=== PATIENT | female | born 1990 | race Caucasian/White ===

== ENCOUNTER 2020-07-05 00:43 | Emergency (ER) | payer MEDICAID ==
[~2020-07-05] VITALS: Ht 165.1 cm; Wt 73.0 kg
--- NOTE | 2020-07-05 01:10 | NUR ---
PT STATES HURTING RIGHT ANKLE AND IS UNABLE TO ANSWER QUESTIONS, JSUT KEEPS STATING"ON MY FOOT", PT SLURRING SPEECH SLIGHTLY, AND DOZING INTERMITTENTLY, NO S/S OF TRAUMA. X-RAY AT BEDSIDE.
[2020-07-05 03:24] VITALS: BP 121/63
== END 2020-07-05 03:38 | disposition home or self-care (01) ==
LOC: ED 03:07
DX: S93.491A Sprain of other ligament of right ankle, initial encounter (principal); W01.0XXA Fall on same level from slipping, tripping and stumbling without subsequent striking against object, initial encounter; Y93.01 Activity, walking, marching and hiking; Y92.410 Unspecified street and highway as the place of occurrence of the external cause; Y99.8 Other external cause status
CPT/HCPCS: 99283

== ENCOUNTER 2020-07-09 05:04 | Emergency (ER) | payer MEDICAID ==
[~2020-07-09] VITALS: Ht 165.1 cm; Wt 73.0 kg
[2020-07-09 05:07] VITALS: BP 104/53
--- NOTE | 2020-07-09 05:50 | NUR ---
PT SEEN STEADILY AMBULATING OUT THE FRONT ENTRANCE. WILL ATTEMPT TO CALL BACK LATER IN CASE PT RETURNS.
--- NOTE | 2020-07-09 06:40 | NUR ---
CALLED FOR PT. PT NOT IN LOBBY AT THIS TIME.
--- NOTE | 2020-07-09 06:58 | NUR ---
CALLED FOR PT. PT NOT IN LOBBY.
== END 2020-07-09 07:01 | disposition home or self-care (01) ==
LOC: ED 06:55
DX: M79.604 Pain in right leg (principal); Z53.21 Procedure and treatment not carried out due to patient leaving prior to being seen by health care provider